=== PATIENT | female | born 1985 | race Caucasian/White ===

== ENCOUNTER 2017-02-24 08:33 | Emergency (ER) | payer OTHER ==
[~2017-02-24] VITALS: Ht 152.4 cm; Wt 51.3 kg
[~2017-02-24 08:33] MED LIST: AMOX500C PO; PENI500T PO; TRAM-29 PO; TRAM1TAB49 PO
[2017-02-24 08:55] VITALS: BP 134/77
[2017-02-24] MEDS ORDERED: HYDR-971 PO (09:14)
[2017-02-24] MEDS ORDERED: NAPR500T8 PO (09:14)
[2017-02-24] MEDS ORDERED: AMOX875T PO (09:14)
--- NOTE | 2017-02-24 09:14 | PHYS DOC ---
Past Medical History Past Medical History: No Pertinent History Past Surgical History: Tubal ligation Alcohol Use: Rarely Drug Use: None Adult General Chief Complaint Chief Complaint: DENTAL PROBLEM HPI HPI Patient is a 31 year old female who presents with upper gum dental abscess that began 3 days ago. Patient states she has bad teeth and has an appointment with a local dental school for follow-up next week. Patient denies any fever or trismus. Review of Systems Review of Systems Constitutional: Denies fever or chills [] Eyes: Denies change in visual acuity, redness, or eye pain [] HENT: Upper gum dental abscess Musculoskeletal: Denies back pain or joint pain [] Integument: Denies rash or skin lesions [] Neurologic: Denies headache, focal weakness or sensory changes [] Endocrine: Denies polyuria or polydipsia [] Allergies Allergies Allergies Coded Allergies Type Severity Reaction Last Updated Verified No Known Drug Allergies 10/16/16 No Physical Exam Physical Exam Constitutional: Well developed, well nourished, no acute distress, non-toxic appearance. [] HENT: Normocephalic, atraumatic, bilateral external ears normal, oropharynx moist, no oral exudates, nose normal. [] Patient is missing most of her teeth, there is scattered dental caries and decay throughout the remaining teeth. There is diffuse gum redness and swelling on the upper gums. There is a tiny dental abscess on the gumline of tooth #8 and 9. The abscess has no fluctuance. The area is tender to palpate. No drainage noted. Skin: Warm, dry, no erythema, no rash. [] Back: No tenderness, no CVA tenderness. [] Extremities: No tenderness, no cyanosis, no clubbing, ROM intact, no edema. [] Neurologic: Alert and oriented X 3, normal motor function, normal sensory function, no focal deficits noted. [] Psychologic: Affect normal, judgement normal, mood normal. [] Current Patient Data Vital Signs Vital Signs Date Time Temp Pulse Resp B/P (MAP) Pulse Ox O2 Delivery O2 Flow Rate FiO2 02/24/17 08:55 98.1 76 18 98 Room Air 98.1 EKG EKG [] Radiology/Procedures Radiology/Procedures [] Course & Med Decision Making Course & Med Decision Making Pertinent Labs and Imaging studies reviewed. (See chart for details) Patient has a dental abscess. Discharged with amoxicillin and pain medicine. Provided instructions to follow-up with the dentist as this will be the best solution for chronic dental carriers. Provided return precautions and discharged in stable condition. Sarika Disclaimer Sarika Disclaimer This electronic medical record was generated, in whole or in part, using a voice recognition dictation system. Departure Departure Impression: Primary Impression: Dental abscess Additional Impressions: Dentalgia Infected dental caries Gingivitis Disposition: HOME, SELF-CARE Condition: STABLE Referrals: CARMEN ROSALES MD (PCP) GALE SHAFFER Jr DDS Follow-up with the provided dentist or your own dentist in the next 7 days Patient Instructions: Dental Abscess, Dental Caries Additional Instructions: You seen for dental abscess. You have scattered dental decay throughout your teeth. Follow-up with your own dentist as soon as he can. You can also follow up with the provided dentist. Come back to the emergency room if you have any concerning symptoms. Scripts Naproxen (NAPROXEN) 500 Mg Tablet.dr 1 TAB PO BID, #60 TAB 1 Refill Prov: YEIMY BURNS APRN 02/24/17 Hydrocodone/Apap 5-325 (NORCO 5-325 TABLET) 1 Each Tablet 1-2 TAB PO Q4-6HRS, #40 TAB MUST FILL RX FOR AMOXICILLIN PRIOR TO NORCO Prov: YEIMY BURNS APRN 02/24/17 Amoxicillin (AMOXICILLIN) 875 Mg Tablet 1 TAB PO BID, #20 TAB Prov: YEIMY BURNS APRN 02/24/17 Problem Qualifiers YEIMY BURNS APRN February 24, 2017 09:14
== END 2017-02-24 09:19 | disposition home or self-care (01) ==
LOC: ER 08:33
DX: K04.7 Periapical abscess without sinus (principal); K05.10 Chronic gingivitis, plaque induced; K02.9 Dental caries, unspecified
CPT/HCPCS: 99283